=== PATIENT | female | born 1985 | race Caucasian/White ===

== ENCOUNTER → 2019-04-01 16:39 | Outpatient (BNVA) | payer BC, SELFPAY | PROVIDERS: PCP Nurse Practitioner Family; Visit Provider Nurse Practitioner Family | DX: N92.1 Excessive and frequent menstruation with irregular cycle (principal) | CPT/HCPCS: 36415; 85025 ==

== ENCOUNTER → 2019-05-09 15:02 | Outpatient (BNVA) | payer BC, SELFPAY | PROVIDERS: PCP Nurse Practitioner Family; Visit Provider Obstetrics & Gynecology Female Pelvic Medicine and Reconstructive Surgery | DX: N93.9 Abnormal uterine and vaginal bleeding, unspecified (principal) | CPT/HCPCS: 76830; 76856; 87491; 87591; 87661 ==

== ENCOUNTER → 2019-10-13 09:06 | Outpatient (BNVA) | payer BC, SELFPAY | PROVIDERS: PCP Nurse Practitioner Family; Visit Provider Nurse Practitioner Family | DX: H02.60 Xanthelasma of unspecified eye, unspecified eyelid (principal); R53.83 Other fatigue | CPT/HCPCS: 80048; 80061 ==

== ENCOUNTER 2019-11-24 13:11 | Outpatient (CLI) | payer BC, SELFPAY ==
--- NOTE | 2019-11-24 13:27 | MM_ITS ---
WS: [id number] DIAGNOSTIC BILATERAL DIGITAL MAMMOGRAM WITH CAD RIGHT breast ultrasound, limited HISTORY: RIGHT BREAST LUMP 9 O'CLOCK COMPARISON: None available. TECHNIQUE: Bilateral craniocaudad, mediolateral oblique, and mediolateral views are submitted. Spot c ompression RIGHT CC. Computer aided detection utilized. Breast composition: The breasts are heterogeneously dense, which may obscure small masses. Palpable m arker is placed along the 10:00 axis of the RIGHT breast. There is no underlying mass or distortion. No soft tissue thickening. LEFT breast is negative. RIGHT breast ultrasound, limited. Ultrasound is directed to the palpable area in the RIGHT breast. There is mild dense fibroglandular t issue with fibrocystic changes. No mass or shadowing or increased vascularity. MM/[place] [id number] IMPRESSION: BI-RADS: 2-Benign FOLLOW UP: Age 40 If palpable area progresses or there are concerning significant clinical findin gs surgical evaluation can be obtained.
== END 2019-11-24 13:12 | disposition home or self-care (01) ==
PROVIDERS: PCP Nurse Practitioner Family; Visit Provider Nurse Practitioner Family
DX: N63.15 Unspecified lump in the right breast, overlapping quadrants (principal)
CPT/HCPCS: 76642; 77066

== ENCOUNTER 2020-12-14 14:51 | Outpatient (CLI) | payer OTHER, SELFPAY ==
--- NOTE | 2020-12-14 15:01 | XR_ITS ---
WS: [id number] Cervical spine, 3 views, 12/14/2020 Clinical Data: M54.2 - Cervicalgia Comparison: None. Findings: No compression fractures are seen. The disc heights are normal. There is no prevertebral so ft tissue swelling. The odontoid is unremarkable. The soft tissues of the neck and the lung apices ar e normal. XR/XR cervical spine 3V* [id number] Impression: Negative cervical spine.
--- NOTE | 2020-12-14 15:01 | XR_ITS ---
WS: [id number] Thoracic spine, 3 views, 12/14/2020 Clinical Data: M54.9 - Dorsalgia, unspecified Comparison: None. Findings: No compression fractures are seen. The disc heights are normal. The paravertebral regions are normal. XR/XR thoracic spine 3V* [id number] Impression: Negative thoracic spine.
== END 2020-12-14 14:52 | disposition home or self-care (01) ==
PROVIDERS: PCP Nurse Practitioner Family; Visit Provider Nurse Practitioner Family
DX: M54.2 Cervicalgia (principal); M54.6 Pain in thoracic spine
CPT/HCPCS: 72040; 72072

== ENCOUNTER 2021-08-16 07:05 | Outpatient (CLI) | payer OTHER, SELFPAY ==
--- NOTE | 2021-08-16 08:00 | US_ITS ---
WS: [id number] TRANSABDOMINAL PELVIC AND TRANSVAGINAL PELVIC ULTRASOUND HISTORY: N93.9 - Abnormal uterine and vaginal bleeding, unspecified COMPARISON: 05/09/2019 Uterus: 8.5 cm x 5.2 cm x 4.0 cm. Anteverted uterus is normal size. There is a mildly bulbous appeara nce to the anterior myometrium. Myometrium is heterogeneous with areas of decreased and increased ech ogenicity. Predominantly areas of decreased echogenicity similar to the prior study. Largest area wit h shadowing and change in echogenicity is along the anterior myometrium measuring 2.7 x 1.6 x 1.9 cm. Endometrium: 0.6 cm. Endometrium is normal size but is asymmetrically positioned within the uterus wh ich is probably due to the fibroids. Adenomyosis may appear similar. Right ovary: 2.7 cm x 1.5 cm x 1.6 cm. Normal size ovary. Normal vascularity. No mass. Left ovary: 2.3 cm x 1.9 cm x 1.5 cm. Normal size ovary. Normal vascularity. No mass. No free fluid. US/US pelvic with transvaginal IMPRESSION: 1. Abnormal uterus. Normal-sized uterus with heterogeneity throughout the myom etrium and a bulbous contour with areas or shadowing. Most consistent with a fi broid uterus. Very similar to the prior examination from 2019. 2. Endometrium is asymmetrically positioned within the uterus. This could be d ue to the fibroids but adenomyosis also may produce this finding. With history of vaginal bleeding direct visualization and biopsy of the endometrium is recom mended.
== END 2021-08-16 07:06 | disposition home or self-care (01) ==
LOC: RAD 07:06
PROVIDERS: PCP Nurse Practitioner Family; Visit Provider Nurse Practitioner Family
DX: N93.9 Abnormal uterine and vaginal bleeding, unspecified (principal)
CPT/HCPCS: 76830; 76856

== ENCOUNTER → 2024-07-18 11:34 | Outpatient (BNVA) | payer OTHER, SELFPAY | PROVIDERS: PCP Nurse Practitioner Family; Visit Provider Nurse Practitioner Family | DX: N89.8 Other specified noninflammatory disorders of vagina (principal); N39.0 Urinary tract infection, site not specified | CPT/HCPCS: 81000; 87070; 87086; 87205 ==